=== PATIENT | female | born 1960 | race Caucasian/White ===

== ENCOUNTER → 2020-08-21 09:38 | Outpatient (BNVA) | payer OTHER, SELFPAY | PROVIDERS: PCP Family Medicine; Visit Provider Anesthesiology | DX: Z76.89 Persons encountering health services in other specified circumstances (principal) ==

== ENCOUNTER 2020-08-21 11:31 | Outpatient (REF) | payer OTHER, SELFPAY ==
[2020-08-21 14:30] LABS: Amylase 61 U/L (28-100); Lipase 22 U/L (8-78)
== END 2020-08-21 11:32 | disposition home or self-care (01) ==
LOC: HO.10HDL 11:31
PROVIDERS: Visit Provider Anesthesiology
DX: K86.1 Other chronic pancreatitis (principal)
CPT/HCPCS: 82150; 83690